=== PATIENT | female | born 1960 | race Caucasian/White ===

== ENCOUNTER → 2024-01-18 06:41 | Day surgery (SDC) | payer OTHER, SELFPAY | LOC: GI 06:41 | PROVIDERS: ATTENDING PHYSICIAN Internal Medicine Gastroenterology | DX: Z12.11 Encounter for screening for malignant neoplasm of colon (principal); K57.30 Diverticulosis of large intestine without perforation or abscess without bleeding; Z80.0 Family history of malignant neoplasm of digestive organs | CPT/HCPCS: G0105 ==

== ENCOUNTER 2024-04-28 11:46 | Outpatient (RCR) | payer OTHER, SELFPAY | END 2024-04-28 23:59 | disposition home or self-care (01) | LOC: RPT 11:46 | PROVIDERS: ATTENDING PHYSICIAN Nurse Practitioner Family | DX: I89.0 Lymphedema, not elsewhere classified (principal); E88.2 Lipomatosis, not elsewhere classified; Z73.6 Limitation of activities due to disability | CPT/HCPCS: 97162; 97530 ==

== ENCOUNTER → 2024-09-30 13:25 | Outpatient (REF) | payer OTHER, SELFPAY | LOC: RAD 13:25 | PROVIDERS: ATTENDING PHYSICIAN Surgery Plastic and Reconstructive Surgery; FAMILY PHYSICIAN Student in an Organized Health Care Education/Training Program | DX: Z01.818 Encounter for other preprocedural examination (principal) | CPT/HCPCS: 71046 ==

== ENCOUNTER → 2025-01-20 14:02 | Outpatient (REF) | payer OTHER, SELFPAY | LOC: HWRAD 14:02 | PROVIDERS: ATTENDING PHYSICIAN Surgery Plastic and Reconstructive Surgery; FAMILY PHYSICIAN Student in an Organized Health Care Education/Training Program | DX: I82.409 Acute embolism and thrombosis of unspecified deep veins of unspecified lower extremity (principal); L76.34 Postprocedural seroma of skin and subcutaneous tissue following other procedure; I87.1 Compression of vein | CPT/HCPCS: 76882; 93970; 93978 ==

== ENCOUNTER 2025-05-08 07:30 | Inpatient (IN) | payer OTHER, SELFPAY ==
[2025-05-08] VITALS (9 sets, daily range): BP systolic 126–168; BP diastolic 63–90; BMI 37.8; BMI 37.1
[2025-05-08] MEDS: DUONEB 3 ML INH ×2 (04:40→05:34)
[2025-05-08] MEDS: SOLU-MEDROL PF 125 MG IV (04:40)
[2025-05-08 04:53] LABS: Hematocrit 41.0 % (37.0-47.0); Hemoglobin 13.5 g/dL (12.0-16.0); Mean Corp Hgb Conc. 32.9 g/dL (33.0-37.0); Mean Corpuscular Volume 82.0 fL (81.0-99.0); Nucleated Red Blood Cells % 0 %; Red Cell Dist. Width 14.7 % (11.5-14.5)
[2025-05-08 05:02] LABS: ALT (SGPT) 15 U/L (0-35); AST (SGOT) 21 U/L (14-36); Albumin 4.4 g/dl (3.5-5.0); Alkaline Phosphatase 66 U/L (38-126); Blood Urea Nitrogen 16 mg/dl (7-17); COVID-19 Antigen Negative (Negative); Calcium 9.7 mg/dl (8.4-10.2); Carbon Dioxide 25 mmol/L (22-30); Chloride 104 mmol/L (98-107); Estimated Creatinine Clearance 90 ml/min; Glucose 121 mg/dl (70-99); Potassium 4.1 mmol/L (3.5-5.1); Sodium 139 mmol/L (135-145); Total Protein 7.5 g/dl (6.3-8.2); eGFR > 60.00
[2025-05-08 05:11] LABS: Troponin I < 0.012 ng/ml
[2025-05-08 05:23] LABS: Platelet Count 321 10^3/uL (130-400)
--- NOTE | 2025-05-08 05:53 | ED.GENMED ---
History of Present Illness
<WANG Plascencia Last Filed: 05/08/25 06:25>
General
Chief Complaint: Breathing Problem
Time Seen by Provider: 05/08/25 03:59
History of Present Illness
History of Present Illness:
see MDM
Phy Exam
<WANG Plascencia Last Filed: 05/08/25 06:25>
Physical Exam
Physical Exam:
GENERAL: Alert , in no apparent distress
EYE: pupils equal and reactive
NECK: Supple
ENT: b/l TM s clear, pharynx erythematous but no tonsillar hypertrophy or exudates
CARDIAC: Regular rate and rhythm, left leg lymphedema
LUNGS: Spastic cough, wheezing throughout, no respiratory distress,
ABDOMEN: Soft, without focal tenderness, no r/g, no cvat, normal bowel sounds
NEUROLOGICAL: Alert and oriented, no focal neuro deficits
SKIN: Warm and dry, skin intact.
MUSCULOSKELETAL: Left-sided lymphedema, well perfused.
PSYCH: Normal and appropriate interaction.
Scores
<WANG Plascencia Last Filed: 05/08/25 06:25>
Heart Failure Risk
Heart Failure Risk Score: Not Applicable
Course
<WANG Plascencia Last Filed: 05/08/25 06:25>
Orders/Labs/Results
Orders:
Orders
05/08/25 03:44
Electrocardiogram (*1) Urgent
Reason for Study: Other
Other Reason for Exam: Respiratory Distress
Cardiac Monitoring- Treatment ONCE
EKG- Treatment ONCE
IV Insert/Care/Rem.- Treatment PRN
CR Chest - 2 Views Urgent
Comment:
Reason For Exam: respiratory distress
O2 Therapy [RESP] Urgent
Titrate/Wean O2 to maintain O2 sat greater than (%): 93
Special Instructions: TO MAINTAIN CONTINUOUS O2 SATS >/= 93%
Pulse Ox/cont/shift [RESP] Urgent
Quantity: 1
Special Instructions: continuous pulse ox
05/08/25 04:26
COVID-19 Antigen Urgent
Source: Nasal Swab
Complete Blood Count/With Diff Urgent
Comprehensive Metabolic Panel Urgent
NT-proBNP Urgent
Troponin I Urgent
Influenza A+B Rapid Molecular Urgent
DEMETRA Source: Nasal Swab
Specimen Description:
05/08/25 04:28
Ipratropium/Albuterol Sulfate [Duoneb] 3 ml INH R NOW ONE
MethylPREDNISolone PF [Solu-Medrol Pf] 125 mg IV NOW STA
05/08/25 05:13
Ipratropium/Albuterol Sulfate [Duoneb] 3 ml INH R NOW STA
05/08/25 06:18
D-Dimer Urgent
05/08/25 06:41
Admit/Transfer Patient As Directed
Co-Sign Provider:
Level of Care: Inpatient admission
Assign to:: Medical/Surgical
Physician / Group: Jose
Diagnosis: Asthmatic Bronchitis
Reason for Hospitalization: Asthmatic Bronchitis
Expected length of stay greater than two midnights?: Yes
ELOS- Estimated Length of Stay in days: 2
I certify the patient meets the requirements for IP care: Yes
Code Status As Directed
Resuscitation Status: Full Code
PRN Pain Medication Management As Directed
May give lesser potent ordered pain med per pt: Yes
preference::
Protocol:: Medication orders for pain may be administered in a
manner that supports deferring to patient preference
when the pt is:
- Requesting an ordered lesser potent pain medication.
Least to most potent pain medications are defined
as: acetaminophen < NSAID < tramadol < opioids
(morphine, oxycodone, hydromorphone).
- Requesting a lesser dose of the same medication IF
ORDERED.
- Requesting a less intrusive route of administration
if both routes are prescribed by the provider (PO <
IV).
Abnormal Lab Results
05/08/25
04:26
MCHC 32.9 L g/dL
(33.0-37.0)
RDW 14.7 H %
(11.5-14.5)
Absolute Monos (auto) 0.7 H 10^3/uL
(0.1-0.6)
Glucose 121 H mg/dl
(70-99)
05/08/25 04:26
05/08/25 04:26
Vital Signs
Initial and Last Documented VS:
Initial Vital Signs
Temp Pulse Resp BP Pulse Ox
98.8 F 70 28 168/85 95
05/08/25 03:36 05/08/25 03:36 05/08/25 03:36 05/08/25 03:36 05/08/25 03:36
Last Documented Vital Signs
Temp Pulse Resp BP Pulse Ox
98.8 F 63 14 128/68 95
05/08/25 03:36 05/08/25 06:10 05/08/25 06:10 05/08/25 06:00 05/08/25 06:14
<Bill Kennedy, DO - Last Filed: 05/08/25 06:56>
Orders/Labs/Results
Orders:
Orders
05/08/25 03:44
Electrocardiogram (*1) Urgent
Reason for Study: Other
Other Reason for Exam: Respiratory Distress
Cardiac Monitoring- Treatment ONCE
EKG- Treatment ONCE
IV Insert/Care/Rem.- Treatment PRN
CR Chest - 2 Views Urgent
Comment:
Reason For Exam: respiratory distress
O2 Therapy [RESP] Urgent
Titrate/Wean O2 to maintain O2 sat greater than (%): 93
Special Instructions: TO MAINTAIN CONTINUOUS O2 SATS >/= 93%
Pulse Ox/cont/shift [RESP] Urgent
Quantity: 1
Special Instructions: continuous pulse ox
05/08/25 04:26
COVID-19 Antigen Urgent
Source: Nasal Swab
Complete Blood Count/With Diff Urgent
Comprehensive Metabolic Panel Urgent
NT-proBNP Urgent
Troponin I Urgent
Influenza A+B Rapid Molecular Urgent
DEMETRA Source: Nasal Swab
Specimen Description:
05/08/25 04:28
Ipratropium/Albuterol Sulfate [Duoneb] 3 ml INH R NOW ONE
MethylPREDNISolone PF [Solu-Medrol Pf] 125 mg IV NOW STA
05/08/25 05:13
Ipratropium/Albuterol Sulfate [Duoneb] 3 ml INH R NOW STA
05/08/25 06:18
D-Dimer Urgent
05/08/25 06:41
Admit/Transfer Patient As Directed
Co-Sign Provider:
Level of Care: Inpatient admission
Assign to:: Medical/Surgical
Physician / Group: Jose
Diagnosis: Asthmatic Bronchitis
Reason for Hospitalization: Asthmatic Bronchitis
Expected length of stay greater than two midnights?: Yes
ELOS- Estimated Length of Stay in days: 2
I certify the patient meets the requirements for IP care: Yes
Code Status As Directed
Resuscitation Status: Full Code
PRN Pain Medication Management As Directed
May give lesser potent ordered pain med per pt: Yes
preference::
Protocol:: Medication orders for pain may be administered in a
manner that supports deferring to patient preference
when the pt is:
- Requesting an ordered lesser potent pain medication.
Least to most potent pain medications are defined
as: acetaminophen < NSAID < tramadol < opioids
(morphine, oxycodone, hydromorphone).
- Requesting a lesser dose of the same medication IF
ORDERED.
- Requesting a less intrusive route of administration
if both routes are prescribed by the provider (PO <
IV).
Abnormal Lab Results
05/08/25
04:26
MCHC 32.9 L g/dL
(33.0-37.0)
RDW 14.7 H %
(11.5-14.5)
Absolute Monos (auto) 0.7 H 10^3/uL
(0.1-0.6)
Glucose 121 H mg/dl
(70-99)
05/08/25 04:26
05/08/25 04:26
Vital Signs
Initial and Last Documented VS:
Initial Vital Signs
Temp Pulse Resp BP Pulse Ox
98.8 F 70 28 168/85 95
05/08/25 03:36 05/08/25 03:36 05/08/25 03:36 05/08/25 03:36 05/08/25 03:36
Last Documented Vital Signs
Temp Pulse Resp BP Pulse Ox
98.8 F 63 14 128/68 95
05/08/25 03:36 05/08/25 06:10 05/08/25 06:10 05/08/25 06:00 05/08/25 06:14
<Elsie Florentino PA-C - Last Filed: 05/08/25 06:25>
MDM/Problems Addressed
Differential Diagnosis Includes:
see MDM
MDM/Problems Addressed:
Note:
CHIEF COMPLAINT(S)
Persistent wheezing and cough.
HISTORY OF PRESENT ILLNESS
The patient is a 64-year-old female who initially presented to urgent care approximately three weeks ago with symptoms of a cough and wheezing, for which she was diagnosed with bronchitis. She was provided with an inhaler for treatment. The patient
reports the onset of symptoms a few days prior to visiting urgent care. The condition seemed to improve initially, however, after a recent business trip on Sunday, the wheezing became constant, particularly while lying down, and is causing
significant breathlessness. The patient is experiencing mild chest discomfort primarily due to persistent coughing. The discomfort feels more pronounced in the lower chest region, as opposed to previously perceived upper chest congestion. The
patient recalls losing her sense of smell and taste temporarily but noted a slight return of these senses earlier today. There is concern from the patient regarding the potential progression to pneumonia.
The urgent care visit did not involve receiving any steroids or antibiotics, although a prescription for a Z-pack was provided with the option to fill it if symptoms warranted, which she did not pursue. Current symptoms include shortness of breath,
difficulty reclining, and persistent wheezing.
=
she did travel to [place] recently but only 1 hour flight
she has chronic lypmhedema L leg which is unchanged
no h/o dvt/pe
PAST MEDICAL AND SURIGICAL HISTORY
Patient reports having lymphedema and lipedema. She underwent a procedure related to these conditions in November.
CHRONIC MEDICAL CONDITIONS SIGNIFICANTLY AFFECTING CARE
Lymphedema
Lipedema
MEDICATIONS
Vitamin C
Vitamin D
REVIEW OF SYSTEMS
- Respiratory: Persistent wheezing, cough, shortness of breath when lying down.
- Neurological: Temporary loss of taste and smell.
- Cardiovascular: Chest discomfort primarily tied to coughing.
PHYSICAL EXAM
- Respiratory: Wheezing noted upon auscultation.
- Nursing notes reviewed and vital signs reviewed.
PROBLEM LIST
Acute:
1. Persistent bronchitis with wheezing and cough
2. Possible progression to bacterial infection
Chronic:
1. Lymphedema
2. Lipedema
PLAN
1. Administer bronchodilator treatment combined with Ipratropium and Albuterol.
2. Start a course of oral steroids.
3. Conduct blood work and test for influenza and COVID-19.
4. Evaluate the need for antibiotics, starting with a Z-pack if symptoms persist or fail to improve post-treatment.
5. Plan for potential hospital admission if initial treatments fail to provide relief.
DIFFERENTIAL DIAGNOSIS
The Differential Diagnosis includes, in no particular order and is not limited to:
1. Viral bronchitis
2. Bacterial bronchitis
3. Exacerbation of asthma
4. Chronic obstructive pulmonary disease (COPD)
5. Pneumonia
6. Allergy-induced bronchospasm
7. Congestive heart failure
8. Pulmonary embolism
9. Reactive airways disease
10. Gastroesophageal reflux disease (GERD) related cough
CARE-UPDATE
05/08/25 - 06:22
Patient diagnosed with asthmatic bronchitis, and blood work is normal, including heart enzymes and kidney function. Due to airway inflammation, patient experiences transient oxygen desaturation to 85% RA, necessitating temporary oxygen support
during treatment. Plan to admit for monitoring while on steroids and nebulizer therapy. A blood test for blood clot (D-dimer) was performed to rule out pulmonary embolism, given patient�s lymphoedema; if positive, a chest CT scan will be pursued to
further evaluate lung condition.
<Elsie Florentino PA-C - Last Filed: 05/08/25 06:25>
*Pulse Oximetry
SaO2: 96
Oxygen Mode of Delivery: Room air
Patient hypoxic: yes (85)
*Critical Care Note
Total Time (30-74mins, 75-104mins- exclusive of procedures): Not Applicable
ED Attending Note
<Elsie Florentino PA-C - Last Filed: 05/08/25 06:25>
-
Portions of this chart may have been created with voice recognition software.� Occasional wrong word or��sound alike� substitutions may have occurred due to the inherent limitations of voice recognition software.
<Bill Kennedy DO - Last Filed: 05/08/25 06:56>
ED Attending Note
Patient seen and examined by attending physician: Yes
ED Attending Note:
64-year-old female presents with dyspnea. Patient to be admitted to the hospitalist service. On my initial exam, patient satting 92% on 2 L. She still has audible wheezing. Patient was seen in conjunction with the PA. I have reviewed and agree
with her history and treatment plan.
Discharge Plan
Departure
Patient Disposition: Admit
Date of Disposition: 05/08/25
Time of Disposition: 06:14
Admit to: Med/Surg
Presentation/result/management discussed w/ accepting MD/DO: Hospitalist
Condition: Fair
Covid-19: Not Applicable
Discharge Problem:
Acute bronchitis, Hypoxia
Instructions: Acute Bronchitis, Adult (DC)
Prescriptions:
No Action
levothyroxine [Levoxyl] 125 mcg Tablet
125 mcg PO DAILY
Referrals:
Gem Cruz MD [Active, Pulmonary Medicine] - Follow up in 5-7 days
Nena Ayala MD [Family Provider, Family Practice] - Follow up in 5-7 days
Activity Restrictions/Additional Instructions:
YOU PROBABLY HAVE ASTHAMTIC BRONCHITIS
YOU CAN TAKE THE ANTIBIOTICS YOUW ERE PRESCRIBED
ALSO USE PREDNISONE 50 MG ONCE A DAY FOR 2 DAYS, THEN 40 MG ONCE A DAY FOR 2 DAYS THEN 30 MG ONCE A DAY FOR 2 DAYS, THEN 20 MG ONCE A DAY FOR 2 DAYS, THEN 10 MG ONCE A DAY FOR 2 DAYS
USE THE NEBULIZER EVERY 4-6 HOURS NEEDED FOR COUGH/WHEEZING
FOLLOW UPW ITH CHIEF KNOWLEDGE OFFICER
RETURN FOR WORSE COUGH, CHEST PAIN, PAINFUL BREATHING, COUGHING BLOOD, PASSING OUT, FEVER ETC.
Interventions
Interventions:
*Risk Screen - Suicide Last Done: 05/08/25 03:36
*General Assessment Last Done: 05/08/25 03:36
*Neglect/Abuse Screening Last Done: 05/08/25 03:36
*ED- Fall Risk Assessment Last Done: 05/08/25 03:36
*ED COVID-19 Vaccine History Last Done: 05/08/25 03:36
*ED Influenza Vaccine History Last Done: 05/08/25 03:36
ED- Cardiac Assessment Last Done: 05/08/25 04:31
ED- Pulmonary Assessment Last Done: 05/08/25 04:31
Discharge Date and Time
Print Language: GREENLANDIC
--- NOTE | 2025-05-08 06:15 | EDRN ---
while patient was attempting to rest, oxygen saturation dropped to 84%. 2L NC applied, saturation increased to 94%. provider notified.
--- NOTE | 2025-05-08 06:43 | HPS.HSE ---
Family Physician
-
Family Physician: Nena Ayala MD
Chief Complaint
-
Cough, Wheezing
History of Present Illness
Patient is a 64y F with PMH significant for hypothyroidism who presents to ED complaining of cough and wheeze x 3 weeks. Patient states that her symptoms have been fairly persistent x 3 weeks. Cough is non-productive. No associated SOB. No
fevers / chills. She was seen at Urgent Care about 2 weeks ago and diagnosed with bronchitis. She was prescribed an albuterol inhaler which she has been using with minimal / temporary improvement in symptoms. She had a business trip to [place]
earlier this week and states that symptoms became much worse thereafter. Her has been ill with respiratory symptoms - though to a much more mild degree.
Patient denies any prior history of asthma, emphysema, etc.
In the ED she is noted to be hypoxemic with room air SpO2 of 85% requiring supplemental oxygen.
Medical History
Past Medical History
Past Medical History: Reports Other
Additional Past Medical History:
Thyroid Cancer
Hypothyroidism
LLE Lymphedema and Lipedema
Obesity
Diverticular Disease
Past Surgical History: Reports Other
Additional Past Surgical History:
Vein Ablation LLE
Liposuction LLE
Thyroidectomy
Cholecystectomy
Social History
Tobacco: Non-smoker
Alcohol: None
Drug: None
Family History
Family History: Not pertinent
Allergies / Home Medications
Allergies reflects when Allergies were last updated in [facility].
Home Medications with original date entered in [facility]
Allergy/Medication List:
Allergies
Allergy/AdvReac Type Severity Reaction Status Date / Time
No Known Allergies Allergy Verified 05/08/25 03:36
Home Medications
levothyroxine 125 mcg tablet (Levoxyl) 125 mcg PO DAILY 05/08/25
levothyroxine 125 mcg tablet (Levoxyl) 125 mcg PO DAILY 05/08/25
Review of Systems
-
History Source: Patient
A 12 point ROS was completed and negative except as noted: Yes
Constitutional: Reports Fatigue; Denies Fever or Chills
EENT: Denies Sore Throat or Runny Nose
Respiratory: Reports Cough; Denies Trouble Breathing
Cardiac: Denies Chest Pain or Palpitations
Abdomen/GI: Denies Abdominal Pain, Nausea, Vomiting or Diarrhea
: Denies Dysuria or Frequency
Musculoskeletal: Denies Joint Pain or Edema
Neurological: Denies Dizzy or Headache
Physical Exam
Vital Signs
Vital Signs
Temp Pulse Resp BP Pulse Ox
98.8 F 63 14 128/68 95
05/08/25 03:36 05/08/25 06:10 05/08/25 06:10 05/08/25 06:00 05/08/25 06:14
Physical Exam
General: Other (64y F in no acute distress.)
HEENT: Moist mucous membranes
Respiratory: Other (Diffuse wheezing throughout. )
Cardiac: S1/S2 and Regular Rhythm; No Murmur
GI: Soft, Non Tender, Non Distended and Normal Bowel Sounds
Musculoskeletal: No Clubbing, No Cyanosis and Other (LLE chronic lymphedema - chronic / unchanged.)
Neuro: AO x 3
Laboratory Results
-
05/08/25 04:26
05/08/25 04:26
Laboratory Results
Total Bilirubin 0.8 mg/dl (0.2-1.3) 05/08/25 04:26
AST 21 U/L (14-36) 05/08/25 04:26
ALT 15 U/L (0-35) 05/08/25 04:26
Alkaline Phosphatase 66 U/L (38-126) 05/08/25 04:26
Troponin I < 0.012 ng/ml 05/08/25 04:26
Impression/Plan
-
A/P: Patient is a 64y F with PMH significant for hypothyroidism and lymphedema who presents to ED complaining of 3 weeks of cough and wheezing.
Asthmatic Bronchitis
Acute Hypoxemic Respiratory Insufficiency secondary to the above
- Admit for further evaluation and treatment.
- Likely triggered by viral bronchitis. COVID / Flu negative in the ED this evening.
- Continue nebs as needed, O2 support.
- IV dose of SoluMedrol in the ED - continue with prednisone daily and follow for clinical improvement.
- Observe off of any abx for now.
Hypothyroidism
- Stable. Continue usual T4 supplementation.
Chronic LLE Lymphedema / Lipedema
- Stable. Continue compression, elevation, etc.
Obesity due to excess calories
- Affects all aspects of care.
- Encourage continued efforts at healthy diet and increased activity with goal of weight loss.
DVT Prophylaxis: Lovenox
Code Status: Full
[2025-05-08 07:09] LABS: D-Dimer 1.85 ug/mlFEU (0.00-0.50)
[2025-05-08] MEDS: PROTONIX 40 MG PO (08:06)
[2025-05-08] MEDS: DELTASONE 40 MG PO (08:06)
[2025-05-08] MEDS: SYNTHROID 125 MCG PO (08:06)
[2025-05-08] MEDS: VENTOLIN NEBULES 2.5 MG INH ×3 (11:14→18:00)
--- NOTE | 2025-05-08 12:15 | W.PN.HOSP.TC ---
Today's Communication/Plan
-
CT chest
Nebs
Steroids
Assessment / Plan
Assessment / Plan
64-year-old female with cough and wheezing for 3 weeks her has been ill with respiratory symptoms as well.
Patient is awake alert able to communicate
Cardiovascular system S1-S2 appreciated
Chest bilateral diffuse wheezes noted
Abdomen soft nontender
No pedal edema
# Acute hypoxic respiratory insufficiency secondary to asthmatic bronchitis
COVID and influenza negative
Currently on steroids, nebulizer treatments
Chest x-ray without any acute changes
With elevated D-dimer proceed with a CT PE study with recent travel
# Hypothyroidism-continue levothyroxine 195 mcg daily (history of thyroidectomy for thyroid cancer)
# Chronic lower extremity lymphedema-continue compression
# Obesity with a BMI of 37
# Diverticulosis
# DVT prophylax-Lovenox
# Full code
Part of this note was created using voice recognition system. Occasional wrong word or��sound alike� substitutions may have inadvertently occurred due to the inherent limitations of voice recognition software. If noted kindly bring it to my
attention for correction.
Anticipated Discharge: Within 24 hours
Subjective/Interval History
-
Date of Service: May 08, 2025
Objective Data
-
Labs:
Laboratory Results
05/08/25
04:26
WBC 8.6
Hgb 13.5
Hct 41.0
Plt Count 321
Sodium 139
Potassium 4.1
Chloride 104
Carbon Dioxide 25
BUN 16
Creatinine 0.7
Glucose 121 H
Calcium 9.7
Total Bilirubin 0.8
AST 21
ALT 15
Alkaline Phosphatase 66
Vital Signs:
Vital Signs
Temp Pulse Resp BP Pulse Ox
98.0 F 73 16 142/86 94
05/08/25 08:50 05/08/25 11:15 05/08/25 11:15 05/08/25 08:50 05/08/25 11:15
[2025-05-08] MEDS: MUCINEX 600 MG PO ×2 (12:38→20:19)
[2025-05-08] MEDS: LOVENOX 40 MG SC (17:08)
--- NOTE | 2025-05-08 17:46 | CM ---
IA completed. Pt is independent in ADL and IADLs. Lives with her in a 2 story home with 1 steps at the entrance. Full BR on 2nd floor. NO history of HH or home O2. DME: pneumatic pump, Hx with SNF at [facility]. No
insecurities identified. Confirm PCP. Rx was incorrect and will be changed in the computer to [facility] in [place]. Insurance: pt states she does not have [employer]. ADmissions confirmed that [employer] is NOT checked off and that she has [employer].
ON room air. Hoping to be discharged early in morning tomorrow.
Plan: Home no needs
[2025-05-09] MEDS: SYNTHROID 125 MCG PO (04:58)
[2025-05-09 07:40] VITALS: BP 142/75
[2025-05-09 07:44] LABS: Hematocrit 44.6 % (37.0-47.0); Hemoglobin 14.3 g/dL (12.0-16.0); Mean Corp Hgb Conc. 32.1 g/dL (33.0-37.0); Mean Corpuscular Volume 85.8 fL (81.0-99.0); Platelet Count 398 10^3/uL (130-400); Red Cell Dist. Width 15.3 % (11.5-14.5)
[2025-05-09] MEDS: DELTASONE 40 MG PO (07:54)
[2025-05-09] MEDS: MUCINEX 600 MG PO ×2 (07:54→19:59)
[2025-05-09] MEDS: PROTONIX 40 MG PO (07:54)
[2025-05-09] MEDS: VENTOLIN NEBULES 2.5 MG INH ×4 (07:59→19:41)
[2025-05-09 08:02] LABS: Blood Urea Nitrogen 18 mg/dl (7-17); Calcium 10.2 mg/dl (8.4-10.2); Carbon Dioxide 24 mmol/L (22-30); Chloride 102 mmol/L (98-107); Estimated Creatinine Clearance 78 ml/min; Glucose 121 mg/dl (70-99); Potassium 4.9 mmol/L (3.5-5.1); Sodium 136 mmol/L (135-145); eGFR > 60.00
--- NOTE | 2025-05-09 14:49 | W.PN.HOSP.TC ---
Today's Communication/Plan
-
Inhaled steroids
Continue nebulizer treatments
Assessment / Plan
Assessment / Plan
64-year-old female with cough and wheezing for 3 weeks her has been ill with respiratory symptoms as well.
Patient is awake alert able to communicate
Cardiovascular system S1-S2 appreciated
Chest bilateral diffuse wheezes noted, better than yesteterday
Abdomen soft nontender
No pedal edema
CT of the chest-no PE. No acute findings in the chest
# Acute hypoxic respiratory insufficiency secondary to asthmatic bronchitis
COVID and influenza negative
Currently on steroids, nebulizer treatments
Add inhaled steroids
Chest x-ray without any acute changes
With elevated D-dimer proceed with a CT PE study with recent travel
# Leukocytosis likely secondary to steroids. Follow
# Hypothyroidism-continue levothyroxine 195 mcg daily (history of thyroidectomy for thyroid cancer)
# Chronic lower extremity lymphedema-continue compression
# Obesity with a BMI of 37
# Diverticulosis
# DVT prophylax-Lovenox
# Full code
Discussed with nursing at bedside
Part of this note was created using voice recognition system. Occasional wrong word or��sound alike� substitutions may have inadvertently occurred due to the inherent limitations of voice recognition software. If noted kindly bring it to my
attention for correction.
Anticipated Discharge: Within 24 hours
Subjective/Interval History
-
Date of Service: May 09, 2025
Objective Data
-
Labs:
Laboratory Results
05/09/25
06:40
WBC 18.3 H
Hgb 14.3
Hct 44.6
Plt Count 398 D
Sodium 136
Potassium 4.9
Chloride 102
Carbon Dioxide 24
BUN 18 H
Creatinine 0.8
Glucose 121 H
Calcium 10.2
Vital Signs:
Vital Signs
Temp Pulse Resp BP Pulse Ox
97.5 F 80 16 142/75 93
05/09/25 07:40 05/09/25 11:30 05/09/25 11:30 05/09/25 07:40 05/09/25 08:04
I&O
05/08/25 05/09/25 05/10/25
06:59 06:59 05:59
Intake Total 240 / 240
Balance 240 / 240
[2025-05-09 15:30] VITALS: BP 152/85
[2025-05-09] MEDS: PULMICORT 0.25 MG INH ×2 (16:00→19:41)
[2025-05-09] MEDS: LOVENOX 40 MG SC (17:48)
[2025-05-09 23:00] VITALS: BP 127/65
[2025-05-10] MEDS: SYNTHROID 125 MCG PO (05:36)
[2025-05-10] MEDS: MUCINEX 600 MG PO (07:29)
[2025-05-10] MEDS: PROTONIX 40 MG PO (07:29)
[2025-05-10] MEDS: DELTASONE 40 MG PO (07:32)
[2025-05-10 07:40] VITALS: BP 156/82
[2025-05-10] MEDS: PULMICORT 0.25 MG INH (07:46)
[2025-05-10] MEDS: VENTOLIN NEBULES 2.5 MG INH ×2 (07:46→11:27)
[2025-05-10 09:02] LABS: Hematocrit 41.8 % (37.0-47.0); Hemoglobin 13.9 g/dL (12.0-16.0); Mean Corp Hgb Conc. 33.3 g/dL (33.0-37.0); Mean Corpuscular Volume 82.9 fL (81.0-99.0); Platelet Count 351 10^3/uL (130-400); Red Cell Dist. Width 15.8 % (11.5-14.5)
--- NOTE | 2025-05-10 12:57 | W.PN.HOSP.TC ---
Today's Communication/Plan
-
Discharge
Assessment / Plan
Assessment / Plan
64-year-old female with cough and wheezing for 3 weeks her has been ill with respiratory symptoms as well.
Patient is awake alert able to communicate
Cardiovascular system S1-S2 appreciated
Chest Mostly CTA, one faint exp wheeze on the right
Abdomen soft nontender
No pedal edema
CT of the chest-no PE. No acute findings in the chest
# Acute hypoxic respiratory insufficiency secondary to asthmatic bronchitis
COVID and influenza negative
Currently on steroids, nebulizer treatments
Home O2 evaluation noted. Patient does not need oxygen
Will discharge on a steroid taper, Mucinex
Outpatient PFTs discussed with patient
# Mild hyperglycemia secondary to steroids
# Leukocytosis likely secondary to steroids. better
# Hypothyroidism-continue levothyroxine 195 mcg daily (history of thyroidectomy for thyroid cancer)
# Chronic lower extremity lymphedema-continue compression
# Obesity with a BMI of 37
# Diverticulosis
# DVT prophylax-Lovenox
# Full code
Discussed with nursing at bedside
Discussed with at bedside
Part of this note was created using voice recognition system. Occasional wrong word or��sound alike� substitutions may have inadvertently occurred due to the inherent limitations of voice recognition software. If noted kindly bring it to my
attention for correction.
Anticipated Discharge: Today
Subjective/Interval History
-
Date of Service: May 10, 2025
Objective Data
-
Labs:
Laboratory Results
05/10/25
08:33
WBC 14.1 H
Hgb 13.9
Hct 41.8
Plt Count 351
Vital Signs:
Vital Signs
Temp Pulse Resp BP Pulse Ox
98.1 F 88 18 156/82 94
05/10/25 07:40 05/10/25 11:34 05/10/25 11:34 05/10/25 07:40 05/10/25 11:34
I&O
05/09/25 05/10/25 05/11/25
06:59 05:59 06:59
Intake Total 240 / 240
Balance 240 / 240
--- NOTE | 2025-05-10 12:58 | W.DS.TRANS ---
Addendum entered and electronically signed by Evangelista Bellamy MD 05/10/25 15:12:
Dictation- [id number]
Original Note:
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
-
Discharge Instructions:
Discharge Diagnosis/Procedures Acute Bronchitis
Acute hypoxic respiratory insufficiency
Hypothyroidism
Diverticulosis
Diet As tolerated
Activity As tolerated
Driving Restrictions As prior to admission
Instructions:
Stand-Alone Forms:
Changes to Home Medications: Yes
Discharge Medications:
DC Medications w/original date entered in [employer]
levothyroxine 125 mcg tablet (Levoxyl) 125 mcg PO DAILY Thyroid 05/08/25
albuterol sulfate 90 mcg/actuation aerosol inhaler (Ventolin HFA) 2 puff inhalation Q6H PRN shortness of breath or wheezing #8.5 grams 05/10/25
guaifenesin 600 mg tablet, extended release 12 hr 600 mg PO Q12 Cough #0 tabs 05/10/25
prednisone 10 mg tablet See Rx Instructions .Route .COMPLEX Lung/breathing issues #16 tabs 05/10/25
Home Medication Changes
new
albuterol sulfate 90 mcg/actuation aerosol inhaler (Ventolin HFA) 2 puff inhalation Q6H PRN shortness of breath or wheezing #8.5 grams 05/10/25
guaifenesin 600 mg tablet, extended release 12 hr 600 mg PO Q12 Cough #0 tabs 05/10/25
prednisone 10 mg tablet See Rx Instructions .Route .COMPLEX Lung/breathing issues #16 tabs 05/10/25
Pending Results: No
[2025-05-10 13:22] VITALS: BP 128/64
== END 2025-05-10 14:00 | disposition home or self-care (01) | DRG 203 ==
LOC: 4 EAST ACU 07:30
PROVIDERS: Physician Assistant; ADMITTING PHYSICIAN Hospitalist; ATTENDING PHYSICIAN Hospitalist; EMERGENCY PHYSICIAN Student in an Organized Health Care Education/Training Program; FAMILY PHYSICIAN Student in an Organized Health Care Education/Training Program
DX: J20.8 Acute bronchitis due to other specified organisms (principal); I89.0 Lymphedema, not elsewhere classified; R09.02 Hypoxemia; E89.0 Postprocedural hypothyroidism; E66.09 Other obesity due to excess calories; D72.829 Elevated white blood cell count, unspecified; R73.9 Hyperglycemia, unspecified; R06.89 Other abnormalities of breathing; T38.0X5A Adverse effect of glucocorticoids and synthetic analogues, initial encounter; Y92.9 Unspecified place or not applicable; Z68.37 Body mass index [BMI] 37.0-37.9, adult; Z11.52 Encounter for screening for COVID-19; Z85.850 Personal history of malignant neoplasm of thyroid; Z90.49 Acquired absence of other specified parts of digestive tract; Z87.19 Personal history of other diseases of the digestive system; Z79.899 Other long term (current) drug therapy; Z79.890 Hormone replacement therapy
CPT/HCPCS: 71046; 71275; 80048; 80053; 83880; 84484; 85025; 85027; 85379; 87502; 87811; 93005; 94640; 94760; 96374; 99285; Q9967